=== PATIENT | male | born 1970 | race Caucasian/White ===

== ENCOUNTER 2021-04-19 08:48 | Emergency (ER) | payer OTHER ==
[~2021-04-19] VITALS: Ht 172.7 cm; Wt 84.6 kg
--- NOTE | 2021-04-19 10:08 | PHYS DOC ---
Past Medical History Past Medical History: Hypertension Past Surgical History: Cholecystectomy, Other Additional Past Surgical Histo: GANGLION CYST Smoking Status: Never Smoker Additional Information: CHEWS TOBACCO Alcohol Use: Occasionally General Adult EDM: Chief Complaint: HYPERTENSION HPI: HPI: Patient is a 50 year old male with history of hypertension who presents with 5- day history of elevated blood pressure. He currently takes metoprolol and losartan every day and has an additional prescription for an as needed adjunct. He does not remember the name of this medication. Patient states Sunday last week (04/15), patient had a headache and states he "could just tell" that his blood pressure was high. He states he gets the same feeling in the past when his blood pressure spikes. He did not check it at that time, as he was home and attempting to relax. Patient states he spent the weekend sleeping and did not do much due to fatigue and decreased motivation. Two days ago, he states he had the same feeling of high blood pressure with headache, despite having taken all 3 of his blood pressure medications that morning. When he checked his blood pressure at home that day, he states it was 160/103. He took an additional tablet of his adjunct medication. Patient states he had difficulty sleeping last night and woke up several times. Patient reports he took all 3 of his medications this morning. When he checked his blood pressure throughout the day his diastolic readings were 105 and 112. Patient reports associated symptoms of headache, dizziness, intermittent chest pain and trouble focusing his eyes. He reports increased stress at work, as he feels that he always needs to be "alert" and has a hard time relaxing, even when he is at home. Patient has no other complaints at this time. Review of Systems: Review of Systems: 12 system ROS negative except as mentioned in HPI. Heart Score: C/O Chest Pain: Yes HEART Score for Chest Pain: HEART Score for Chest Pain Response (Comments) Value History Slighlty/Non-Suspicious 0 ECG Nonspecific Repolarizatio 1 Age >45 - < 65 1 Risk Factors 1 or 2 Risk Factors 1 Troponin < Normal Limit 0 Total 3 Risk Factors: Risk Factors: HTN, tobacco product use (chew) Risk Scores: Score 0 - 3: 2.5% MACE over next 6 weeks - Discharge Home Score 4 - 6: 20.3% MACE over next 6 weeks - Admit for Clinical Observation Score 7 - 10: 72.7% MACE over next 6 weeks - Early Invasive Strategies Allergies: Allergies: Allergies Coded Allergies Type Severity Reaction Last Updated Verified No Known Drug Allergies 04/19/21 No Physical Exam: PE: Constitutional: Well developed, well nourished, no acute distress, non-toxic appearance. Neck: Normal range of motion, no tenderness, supple, no stridor, no JVD. Cardiovascular: Heart rate regular rhythm, no murmur. Lungs & Thorax: Bilateral breath sounds clear to auscultation. Abdomen: Bowel sounds normal, soft, no tenderness, no masses, no pulsatile masses. Skin: Warm, dry, no erythema, no rash. Extremities: No tenderness, no cyanosis, no clubbing, ROM intact, no edema. Neurologic: Alert and oriented x3, normal motor function, normal sensory function, no focal deficits noted. Psychologic: Affect pleasant but concerned, good judgment, mood "stressed." Current Patient Data: Labs: Laboratory Tests Test 04/19/21 09:50 04/19/21 10:11 04/19/21 12:20 White Blood Count 6.5 x10^3/uL (4.0-11.0) Red Blood Count 4.62 x10^6/uL (4.30-5.70) Hemoglobin 15.5 g/dL (13.0-17.5) Hematocrit 44.1 % (39.0-53.0) Mean Corpuscular Volume 95 fL (79-100) Mean Corpuscular Hemoglobin 34 pg (25-35) Mean Corpuscular Hemoglobin Concent 35 g/dL (31-37) Red Cell Distribution Width 13.7 % (11.5-14.5) Platelet Count 240 x10^3/uL (140-400) Neutrophils (%) (Auto) 65 % (31-73) Lymphocytes (%) (Auto) 24 % (24-48) Monocytes (%) (Auto) 10 % (0-9) Eosinophils (%) (Auto) 1 % (0-3) Basophils (%) (Auto) 0 % (0-3) Neutrophils # (Auto) 4.2 x10^3/uL (1.8-7.7) Lymphocytes # (Auto) 1.6 x10^3/uL (1.0-4.8) Monocytes # (Auto) 0.6 x10^3/uL (0.0-1.1) Eosinophils # (Auto) 0.1 x10^3/uL (0.0-0.7) Basophils # (Auto) 0.0 x10^3/uL (0.0-0.2) Sodium Level 138 mmol/L (136-145) Potassium Level 3.9 mmol/L (3.5-5.1) Chloride Level 101 mmol/L (98-107) Carbon Dioxide Level 26 mmol/L (21-32) Anion Gap 11 (6-14) Blood Urea Nitrogen 11 mg/dL (8-26) Creatinine 1.2 mg/dL (0.7-1.3) Estimated GFR (Cockcroft-Gault) 64.6 Glucose Level 105 mg/dL (70-99) Calcium Level 8.6 mg/dL (8.5-10.1) Creatine Kinase 185 U/L (39-308) Creatine Kinase MB (Mass) 1.2 ng/mL (0.0-3.6) Creatine Kinase MB Relative Index 0.6 % (0-4) Troponin I Quantitative < 0.017 ng/mL (0.000-0.055) < 0.017 ng/mL (0.000-0.055) Urine Collection Type Unknown Urine Color Yellow Urine Clarity Clear Urine pH 7.0 (<5.0-8.0) Urine Specific Mead 1.010 (1.000-1.030) Urine Protein Negative mg/dL (NEG-TRACE) Urine Glucose (UA) Negative mg/dL (NEG) Urine Ketones (Stick) Negative mg/dL (NEG) Urine Blood Negative (NEG) Urine Nitrite Negative (NEG) Urine Bilirubin Negative (NEG) Urine Urobilinogen Dipstick 0.2 mg/dL (0.2 mg/dL) Urine Leukocyte Esterase Negative (NEG) Urine RBC 0 /HPF (0-2) Urine WBC 0 /HPF (0-4) Urine Squamous Epithelial Cells Few /LPF Urine Bacteria 0 /HPF (0-FEW) Vital Signs: Vital Signs Date Time Temp Pulse Resp B/P (MAP) Pulse Ox O2 Delivery O2 Flow Rate FiO2 04/19/21 08:52 79 16 155/97 (116) 97 Room Air EKG: EKG: EKG Interpreted by Dr. Valdez, 0904: Regular rate and rhythm 74 bpm with no ectopic beats. No concerning ST-T wave changes, ST contour abnormality seen in leads V2V4. Regular QR interval. EKG Interpreted by Dr. Valdez, 1007: Regular rate and rhythm 65 bpm with no ectopic beats. No concerning ST-T wave changes, ST contour abnormality seen in leads V2V4. Regular QR interval. Radiology/Procedures: Radiology/Procedures: PROCEDURE: PORTABLE CHEST 1V XR CHEST 1V CLINICAL INDICATIONS: Hypertension, / Spl. Instructions: / History: COMPARISON: None available. Findings: No acute lung infiltrate or pleural effusion or pulmonary edema or lung mass or pneumothorax is seen. The heart size, pulmonary vasculature, mediastinum and both dimitri are unremarkable. IMPRESSION: No acute radiographic abnormality is seen. Electronically signed by: Deo Marrqouin MD (04/19/2021 10:28 AM) [id number] Course & Med Decision Making: Course & Med Decision Making Pertinent Labs and Imaging studies reviewed. (See chart for details) Patient work-up today to evaluate for acute VA, hypertensive emergency, aortic dissection. Work-up today is reassuring. Discussed hypertension management as well as evaluation for anxiety at length with the patient. Patient has been advised to record his blood pressure in the morning and before he goes to sleep at night. He should bring this with him to his follow-up appointment with his primary care provider to assist in adjusting/changing blood pressure medication regimen. Additionally, he should utilize either his primary care provider or resources from the police department for evaluation and treatment for anxiety. Cognitive behavioral therapy benefits were discussed with the patient regarding increasing coping mechanisms for increased stress so that it does not affect his daily life. Patient understands and is agreeable to discharge plan. Juan Francisco Disclaimer: Juan Francisco Disclaimer: This electronic medical record was generated, in whole or in part, using a voice recognition dictation system. Departure Departure Impression: Primary Impression: Hypertension not at goal Additional Impressions: Headache Qualified Codes: R51.9 - Headache, unspecified Stress at work Disposition: HOME / SELF CARE / HOMELESS Condition: STABLE Referrals: HARIS EVANS MD Patient Instructions: Headache, FAQs, Hypertension, [id number], Stress Additional Instructions: Your work-up today ruled out any life-threatening cardiovascular process either as a result or causing your elevated blood pressure readings the past few days. As discussed, you should keep a log, morning and night, of your blood pressures at home to bring with you to follow-up with your primary care provider. It is possible that you will need to change your hypertensive medication regimen. If needed, you may also follow-up with a speech therapist technician, for whom contact information has been provided. Your primary care doctor can provide you with additional resources and tools for coping with stress from work. It seems as though you have had some of these conversations with him already, and I strongly advised that you continue on that process either with your doctor or through psychological services at work. Please return to the emergency department if your symptoms worsen, or if your blood pressure does not go down despite both medication and relaxation techniques. LEENA JOHNSON Apr 19, 2021 10:08
[2021-04-19 10:09] LABS: BASO % 0 % (0-3); EOS # 0.1 x10^3/uL (0.0-0.7); EOS % 1 % (0-3); HEMATOCRIT 44.1 % (39.0-53.0); HEMOGLOBIN 15.5 g/dL (13.0-17.5); LYMPH # 1.6 x10^3/uL (1.0-4.8); LYMPH % 24 % (24-48); MEAN CORPUSCULAR HEMOGLOBIN 34 pg (25-35); MEAN CORPUSCULAR HGB CONC 35 g/dL (31-37); MEAN CORPUSCULAR VOLUME 95 fL (79-100); MONO # 0.6 x10^3/uL (0.0-1.1); MONO % 10 % (0-9); NEUT # 4.2 x10^3/uL (1.8-7.7); NEUT % 65 % (31-73); PLATELET COUNT 240 x10^3/uL (140-400); RED BLOOD COUNT 4.62 x10^6/uL (4.30-5.70); RED CELL DISTRIBUTION WIDTH 13.7 % (11.5-14.5); WHITE BLOOD COUNT 6.5 x10^3/uL (4.0-11.0)
[2021-04-19 10:24] LABS: CALCIUM 8.6 mg/dL (8.5-10.1); CREATININE 1.2 mg/dL (0.7-1.3); GFR 64.6; POTASSIUM 3.9 mmol/L (3.5-5.1)
[2021-04-19 10:26] LABS: BILIRUBIN,URINE NEGATIVE (NEG); CLARITY,URINE CLEAR; COLOR,URINE YELLOW; NITRITE,URINE NEGATIVE (NEG); PROTEIN,URINE NEGATIVE (NEG-TRACE); UROBILINOGEN,URINE 0.2 mg/dL (0.2 mg/dL)
[2021-04-19] MEDS ORDERED: IOHEXOL 350 MG/ML 100 ML VIAL. IV ONE (10:30)
--- NOTE | 2021-04-19 10:31 | RAD ---
XR CHEST 1V CLINICAL INDICATIONS: Hypertension, / Spl. Instructions: / History: COMPARISON: None available. Findings: No acute lung infiltrate or pleural effusion or pulmonary edema or lung mass or pneumothora x is seen. The heart size, pulmonary vasculature, mediastinum and both dimitri are unremarkable. IMPRESSION: No acute radiographic abnormality is seen. Electronically signed by: Deo Marroquin MD (04/19/2021 10:28 AM) [id number]
[2021-04-19 10:41] LABS: BACTERIA,URINE 0 /HPF (0-FEW); RBC,URINE 0 /HPF (0-2); WBC,URINE 0 /HPF (0-4)
--- NOTE | 2021-04-19 11:15 | RAD ---
CTA CHEST_ABDOMEN_AND PELVIS History: Hypertension, chest pain. Comparison: None. Technique: CT angiogram of the chest, abdomen and pelvis before and after intravenous contrast. 3-D s urface rendered rotational MIPS reformats were provided. Findings: Pulmonary arteries: No large or central pulmonary embolism. Contrast is not optimized for the evaluat ion of higher order pulmonary emboli. Aorta and great vessels: No aneurysm of the aortic arch or thoracic aorta is seen. No atherosclerotic calcification. Heart: The heart is normal in size. There is no pericardial effusion. Mild coronary artery calcificat ion. Thyroid: No significant abnormalities. Mediastinum and dimitri: No mediastinal masses or adenopathy is seen. Esophagus: Mildly patulous gas-filled thoracic. Airways, Lungs, Pleura: Patent airways. No airspace consolidation, pleural effusion or pneumothorax. Calcified left lower lobe granuloma. General abdomen: No ascites. No free air. Liver : Normal in size and attenuation. Right hepatic lobe flash fill hemangioma measuring approximat radha 8 mm diameter. Gallbladder/Biliary Tree: Status post cholecystectomy. No intrahepatic or extrahepatic biliary ductal dilatation. Pancreas: Normal. Spleen: Normal in size and attenuation. Adrenal glands: Normal. Kidneys: No hydronephrosis or hydroureter. No renal masses identified. Gastrointestinal: Unremarkable. Lymph nodes: No lymphadenopathy. Vessels: No aortic aneurysm. Minimal noncalcified aortic atherosclerosis. Widely patent origins of th e celiac, superior mesenteric, renal, inferior mesenteric and iliac arteries. Pelvic Organs: Unremarkable reproductive organs. No pelvic masses. The bladder is unremarkable. Soft tissues: Unremarkable. Bones: No acute or aggressive lesions. Impression: 1. No aortic aneurysm, dissection or stenosis. 2. No acute findings in the chest, abdomen and pelvis. ------ Exposure: One or more of the following individualized dose reduction techniques were utilized for thi s examination: 1. Automated exposure control 2. Adjustment of the mA and/or kV according to patient size 3. Use of iterative reconstruction technique. Electronically signed by: Rony Tee MD (04/19/2021 11:13 AM) [id number]
[2021-04-19 13:14] VITALS: BP 125/76
--- NOTE | 2021-04-25 11:54 | EKG ---
[facility] [address] [place] [address] Test Date: 2021-04-19 Test Time: 10:07:17 Pat Name: KT SHAY Department: Room: Gender: M Utility Technician: : 1970 Requested By: LEENA JOHNSON Order Number: [id number] Reading MD: Richard Beckham MD Measurements Intervals [place] Rate: 65 P: 38 GA: 154 QRS: 43 QRSD: 80 T: 9 QT: 362 QTc: 381 Interpretive Statements SINUS RHYTHM NON-SPECIFIC ST/T CHANGES Electronically Signed On 04-25-2021 11:54:33 CDT by Richard Beckham MD
== END 2021-04-19 13:20 | disposition home or self-care (01) ==
LOC: ER 08:48
DX: I10 Essential (primary) hypertension (principal); R51.9 Headache, unspecified; Z56.3 Stressful work schedule; R07.89 Other chest pain; Z72.0 Tobacco use
CPT/HCPCS: 36415; 71045; 71275; 74174; 80048; 81001; 82553; 84484; 85025; 93005; 99285; Q9967